=== PATIENT | female | born 1960 | race Caucasian/White ===

== ENCOUNTER 2017-12-27 08:58 | Day surgery (SDC) | payer BC, SELFPAY ==
--- NOTE | 2017-12-27 06:44 | W.COLOREPORT ---
Colonoscopy Report Date of procedure: 12/27/17 Pre-op diagnosis general: Colon Cancer screening, hx of polyps Post-op diagnosis procedure note: other (Polyps x 3 and diverticulosis) Procedure: Colonoscopy with polypectomy by cold forceps Surgeon: Bibi Kaiser Anesthesia proc note operative: MAC (Hoda Gamble CRNA / Alie Price CRNA) Estimated blood loss (mL): 2 Pathology: other (descending polyp, rectal polyp x 2) Complications: None Disposition: same day Indications: Ms. Clarke is a pleasant 57-year-old female who was seen in the office to discuss a screening colonoscopy. Risks, benefits, complications were reviewed with her and she wished to proceed. No guarantees were given or implied. Prep: Miralax/Dulcolax Procedure Start Time: 11:00 Procedure End Time: 11:35 Retraction Time: 19 minutes Findings: There were 3 polyps noted within the large bowel. One in the descending colon and 2 in the rectum. There was also moderate diverticulosis of the sigmoid colon. Procedure Description: After informed consent was obtained the patient was taken to the procedure room and placed in a left decubitous position. Monitors were applied and a time out was done. The patients name, date of , procedure, allergies to medications and metal in their body was reviewed. The patient was then sedated. Once sedated and comfortable a rectal exam was done. External exam was normal. Internal exam revealed a normal sphincter tone and no palpable masses. The scope was then introduced and retroflexed. No internal hemorrhoids were identified. The scope was then advanced to the cecum without difficulty. The TI and appendiceal orifice were identified. The prep was adequate. The scope was then slowly retracted over 19 minutes back into the rectum. 1 polyp was removed in the descending colon and 2 in the rectum. There was also moderate diverticulosis of the sigmoid colon. The scope was removed and the patient was woken up and taken back to Same day surgery in stable condition. The patient tolerated the procedure well and there were no immediate complications. Follow up: The patient should follow up in 3-5 years, depending on final pathology, unless they develop changes in bowel habits or other new gastrointestinal complaints.
--- NOTE | 2017-12-27 06:55 | PDOC.DSDIS_ITS ---
Discharge Plan Disposition Patient Disposition: HOME Condition: Good Discharge Details Reason For Visit: SCREENING / HX OF POLYP Attending Provider: Bibi Kaiser Primary Care Provider: Elio Sol Home Meds and New Rx's Prescriptions: Continue albuterol sulfate [Ventolin HFA] 90 mcg/actuation HFA aerosol inhaler 2 puff IH QID RF: 0 aspirin 325 MG tablet 1 tab PO DAILY RF: 0 fluticasone-salmeterol [Advair Diskus] 1 EACH blister with device 1 puff Inhalation BID RF: 0 trazodone 100 MG tablet 1 tab PO HS RF: 0 codeine-guaifenesin [Guaifenesin AC] 473 ML liquid 1 - 2 tsp PO BID PRNRF: 0 levalbuterol tartrate [Xopenex HFA] 15 GM HFA aerosol inhaler 2 puff Inhalation Q6H PRN Qty: 3 RF: 4 mometasone 45 GM cream 45 gm Topical bid prn Qty: 1 RF: 1 PROVENTIL HFA 18 GM HFA.AER.AD 1 - 2 puff Inhalation Q4H PRN Qty: 2 RF: 5 bupropion HCl 150 MG tablet extended release 12 hr 150 mg PO DAILY Qty: 30 RF: 11 naproxen 250 mg Tablet 500 mg PO BID PRNRF: 0 Discontinued polyethylene glycol 3350 17 gram powder in packet 255 g PO DAILY Qty: 15 RF: 0 bisacodyl [Dulcolax (bisacodyl)] 5 mg tablet,delayed release (DR/EC) 5 mg PO ONCE Qty: 4 RF: 0 Discharge Instructions Instructions: Colonoscopy (DC), Diverticulosis (DC), Colorectal Polyps (DC) Additional Instructions: Findings: 3 polyps Diverticulosis Follow up: 3-5 years depending on final pathology New Medications: None Please call if you develop: fevers >101.5 Nausea or Vomiting Abdominal pain that is not transient 1. Because there will be medication in your system for the next 24 hours, you may feel a little sleepy. Your coordination will be affected. Therefore: a. Do not drive or operate dangerous equipment for 24 hours. b. Do not drink alcohol beverages for 24 hours (not even beer). c. Plan to go home and rest for the day. 2. Generally there are no restrictions on your activity after a day or so has gone by, but you may feel a bit fatigued for a few days. 3 After you arrive home you may have a light meal and return to a normal diet as you can tolerate it without feeling sick to your stomach. 4. After surgery, you may feel pain or discomfort. This should be only transient , but if it persists please contact your doctor. 5. If there are any questions regarding the findings of your procedure, please feel free to contact your doctor. 6. If you are unable to contact your doctor with a problem, contact the hospital at [phone]. 7. Continue all your regular medications unless directed otherwise. I understand the above instructions and have no questions. Signature of Patient or Responsible Adult Escort Date/Time Name of Responsible Adult Escort Signature of Nurse Date/Time Activity:: Activity as Tolerated Diet:: high fiber diet Discharge Orders Discharge Orders: Discharge Order (Routine); Ordered 12/27/17 Ordered By: Bibi Kaiser DS: Diagnosis Discharge Diagnosis (1) Colorectal polyp detected on colonoscopy: Status: Acute (2) Diverticulosis: Status: Acute
[2017-12-27 09:28] VITALS: BP 138/84; PULSE 91; RESP 16; TEMP 36.6; O2SAT 94
[2017-12-27] MEDS: Lactated Ringers 1,000 ML 80 ML IV (09:40)
--- NOTE | 2017-12-27 11:02 | BOWEL_PTH ---
PATIENT: INGRID JOHNSON LOC: [facility] U#:[id number] AGE/SX: 57/F ROOM: RE12/27/[address]: Bibi Kaiser MD : [id number] BED: DIS: 12/27/2017 SPEC #: [id number] RECD: 12/27/17 12:43 STATUS: JEN REQ #: [id number] DAMASO: 12/27/17 11:[address]: Bibi Kaiser DEPT: Surgical Specimen RECD BY: Minnie Trent ENTERED: 12/27/17 12:44 SP TYPE: Bowel OTHR DR: Elio Sol MD Tissues: 1 - BIOPSY BOWEL 2 - BIOPSY BOWEL Procedures: GROSS AND MICRO LEVEL 4 Comments: [id number]
[2017-12-27 12:15] VITALS: BP 132/65; PULSE 70; RESP 18; TEMP 36.4; O2SAT 95
== END 2017-12-27 13:02 | disposition home or self-care (01) ==
LOC: SUR 08:59
PROVIDERS: PCP Family Medicine; Visit Provider Surgery
PROC: 0DJD8ZZ Inspection of Lower Intestinal Tract, Via Natural or Artificial Opening Endoscopic (ICD-10-PCS; CPT 45378; principal; 2017-12-27 10:30)
DX: Z12.11 Encounter for screening for malignant neoplasm of colon (principal); K62.1 Rectal polyp; K63.5 Polyp of colon; K57.30 Diverticulosis of large intestine without perforation or abscess without bleeding; Z86.010 Personal history of colon polyps; J44.9 Chronic obstructive pulmonary disease, unspecified; I45.9 Conduction disorder, unspecified; F17.210 Nicotine dependence, cigarettes, uncomplicated
CPT/HCPCS: 45380; 88305

== ENCOUNTER 2018-02-01 11:08 | Emergency (ER) | payer BC, SELFPAY ==
[2018-02-01] VITALS (53 sets, daily range): BP systolic 86–148; BP diastolic 62–106; PULSE 78–148; RESP 10–24; TEMP 36.9; O2SAT 92–100
--- NOTE | 2018-02-01 11:24 | DI.RAD_ITS ---
SYMPTOM/DIAGNOSIS: CHEST PAIN CHEST X-RAY. PORTABLE AP VIEW: Comparison 11/13/11 Heart size and pulmonary vasculature are within normal limits. The lungs show no evidence of congestive heart failure or pneumonia. There is a question of a 2 cm soft tissue nodule in the right perihilar region. CT scan of the chest is recommended for further evaluation. The bones and joints appear unremarkable. IMPRESSION: 1. No acute pulmonary process. 2. Possible soft tissue nodule in the right perihilar region. CT scan of the chest with contrast is recommended for further evaluation.
[2018-02-01] MEDS: methylPREDNISolone SUCC 125 MG VIAL (11:25)
[2018-02-01] MEDS: diphenhydrAMINE 50 MG/ML VIAL (11:26)
[2018-02-01] MEDS: FAMOTIDINE 20 MG/50 ML BAG 100 MG (11:26)
[2018-02-01] MEDS: Aspirin 81 MG CHEW 324 MG CH (11:27)
[2018-02-01 11:37] LABS: Absolute Basophil Count 0.02 k/cumm (0.0-0.2); Absolute Eosinophil Count 0.14 k/cumm (0.0-0.7); Absolute Lymphocyte Count 2.44 k/cumm (1.2-3.4); Absolute Monocyte Count 0.66 k/cumm (0.11-0.7); Absolute Neutrophil Count 4.42 k/cumm (1.2-6.7); Basophils % 0.3; Eosinophils % 1.8; HCT 44.4 % (36.0-46.0); HGB 15.1 g/dL (12.0-15.5); Lymphocytes % 31.8; Mean Corpuscular Hemoglobin 31.5 pg (27.0-33.0); Mean Corpuscular Volume 92.5 fL (80-95); Mean Platelet Volume 10.8 fL (8.0-11.0); Monocytes % 8.6; Neutrophils % 57.5; Platelet Count 237 x1000/uL (130-400); RBC Distribution Width 14.1 % (11.7-14.6); White Blood Cell Count 7.68 k/cumm (4.4-10.8)
[2018-02-01 11:52] LABS: PTT Activated 23.9 sec (21.0-31.4); Prothrombin Time 9.3 sec (9.3-10.8)
--- NOTE | 2018-02-01 11:55 | W.ED.GENAD ---
Discharge Plan Disposition Patient Disposition: [facility] Condition: Stable Discharge Details Chief Complaint: Chest Pain Clinical Impression: Acute non-ST elevation myocardial infarction (NSTEMI), Bundle branch block, left, Chest pain, Acute hypokalemia, Nodule of soft tissue Primary Care Provider: Elio Sol ED Provider: Mayank Santillan Home Meds and New Rx's Prescriptions: No Action aspirin 325 MG tablet 1 tab PO DAILY RF: 0 PROVENTIL HFA 18 GM HFA.AER.AD 1 - 2 puff Inhalation Q4H PRN Qty: 2 RF: 5 Discharge Data Discharge Date/Time-TO BE ENTERED AT DEPARTURE: 02/01/18 13:48 Medical Decision Making 11:55 AM This is a 57-year-old female who presents for evaluation of chest pain. The patient states that 1 hour prior to arrival she had a stabbing chest pain that radiated to her left shoulder and down her left arm. She describes it as a 10 out of 10. She denies any associated shortness of breath. She has never had symptoms quite like this before. Patient has cardiac red flags of a CVA in the past, hypertension, tobacco use. She does take a daily aspirin. She also has a history of WPW. There is concern for potential STEMI. EKG was ordered and shows 1 mm of elevation in V1, and less than 1 May millimeter elevation in V2, no significant reciprocal depression. Patient was given 2 nitroglycerin and had near complete resolution of her pain which eventually returned requiring nitroglycerin drip. Aspirin was given. Cardiology at [facility] was immediately called, after review with Dr. Mcdonough over the EKGs they do recommend admission but have no rooms at this time. They do not feel that the EKGs represent evidence of STEMI, and recommend holding off on TNKase at this time. They do recommend starting heparin, aspirin, and plavix. They will facilitate a transfer as soon as a bed becomes available. 1:20 p.m. Patient's laboratory workup has returned, and demonstrates a negative troponin, potassium is low at 3.1, the remainder of her laboratory blood work is relatively benign. We will correct her hypokalemia peer the patient had a return of her pain requiring increasing the nitroglycerin drip. The nitro drip was increased to 20, however the patient had an adverse reaction and became notably hypotensive with a systolic blood pressure in the 80s. Nitro drip was then titrated back down to 15, and subsequently increased back up to 17.5 where she remains with a pain of 1, and a blood pressure of 100-110 systolic. Repeat EKG was ordered, and now there is notable difference. It does appear that there is a sinus rhythm with occasional PVCs and signs of a left bundle branch block. The previous EKGs now clearly demonstrate an acute and new left bundle branch block in the setting of chest pain. The EKGs are negative for SCARBOSSA criterion. With the patient's increased need for nitroglycerin with her mildly resistant chest pain, and in conjunction with evaluation of an EKG showing that there is a new left bundle branch block (unfortunately there were no previous EKGs for initial comparison) we did contact [facility] and I discussed the case with Dr. Mcdonough again. After review of the case Dr. Mcdonough does feel that with these clinical findings the patient should be transferred to [facility] for cardiac catheterization. She does not recommend giving TNK at this time. Patient will be transferred to [facility] by [facility]. I have extensively reviewed the treatment plan with the patient. I have addressed all patient concerns at this time. I have also discussed the plan with the admitting physician and they agree with the current assessment and plan and have agreed to assume responsibility for the patient. All parties demonstrate verbal understanding and agreement with our assessment and plan at this time. Upon my evaluation, this patient had a high probability of imminent or life-threatening deterioration, which required my direct attention, intervention, and personal management. I have personally provided 45 minutes of critical care time exclusive of time spent on separately billable procedures. Time includes review of laboratory data, radiology results, discussion with consultants, and monitoring for potential decompensation. Interventions were performed as documented above. EKG 11: 16 Rate 95, TN 116, QTc 458, QRS 126, sinus rhythm, WPW type B, questionable [address] elevation in V1, and less than 1 mm elevation in V2, minimal depression in aVF and lead I and II. QRS morphology is atypical, may be related to bundle branch block. SCARBOSSA criteria negative EKG 11: 39 Rate 96, sinus rhythm, TN 124, QTc 455, QRS 136, BP to be, continued questionable 1 mm elevation in V1 and V2, questionable less than 1 mm depression in lateral leads as well as lead I and II. QRS morphology is atypical, may be related to bundle branch block. SCARBOSSA criteria negative EKG 12: 12 Rate 86, sinus rhythm, TN 178, QTc 454, QRS 90, sinus rhythm with notable frequent ectopic ventricular beats, concerning for left bundle branch block which is acute. The normal QRS complexes demonstrate inverted T waves in V1, V2, and peaking of the T waves in V4 V5. No Q waves. Notable changes from prior EKG. Of note the patient has brought up that she has an IV contrast dye allergy which only causes a mild rash, and so on her arrival we did pretreat with Pepcid, 25 mg of Benadryl, and 120 of Solu-Medrol MPRESSION: 1. No acute pulmonary process. 2. Possible soft tissue nodule in the right perihilar region. CT scan of the chest with contrast is recommended for further evaluation. HPI General Date/Time Provider Initiated Documentation: 02/01/18 11:08. HPI Narrative: This is a 57-year-old female with a past medical history of Parkinson's white, COPD, cerebrovascular accident in the past, continued tobacco abuse, who presents today for evaluation of chest pain. 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 It was sharp in nature, was associated with mild shortness of breath. She denies any tearing sensation. She denies any radiation to her head or her right arm. Patient's symptoms are not improved by anything. She immediately came to the ER for further evaluation. Patient states that the only time she had symptoms like this in the past was when she had SVT. Patient denies any other aggravating or relieving factors. She denies any other complaints at this time. She denies any history of coronary artery disease but does admit to a family history of cardiac disease. She did take her daily aspirin earlier today. Patient denies any recent surgeries, or IV or illicit drug use. Related Data Home Medications Medication Instructions Recorded Confirmed aspirin 1 tab PO DAILY tab 06/15/12 02/01/18 Allergies Allergy/AdvReac Type Severity Reaction Status Date / Time Sulfa (Sulfonamide Allergy Unknown HIVES Unverified 02/01/18 13:28 Antibiotics) citalopram AdvReac Intermediate Unverified 02/01/18 13:28 iv contrast Allergy Uncoded 02/01/18 13:29 General Stated Complaint: Chest Pain NATHANIEL: 2 Review of Systems Review of Systems All systems reviewed & are unremarkable except as noted in HPI and below PFSH WPW (Vompx-Wpxdqwgxk-Edezv syndrome) (Acute 1989) Vaginal high risk HPV DNA test positive (Acute 03/31/08) Tubular adenoma (Acute) Smoker (Acute 07/28/17) Ovarian cyst (Acute) Depression (Acute 07/28/17) Chronic obstructive pulmonary disease, unspecified (Acute 07/28/17) CVA (cerebral vascular accident) (Acute 1989) Allergic dermatitis (Acute 07/28/17) Family History Mother Diabetes Cerebrovascular accident Father Diabetes Cerebrovascular accident Grandmother Cerebrovascular accident Sister Diabetes Neoplasm Sister No problems noted. Sister Neoplasm Sister No problems noted. Son Depression Daughter No problems noted. Daughter Substance abuse Depression Family History Toxic shock syndrome (TSS) Blood disorder Colonoscopy planned (Acute ~12/27/17) S/P colonoscopy (Acute ~2003) section Ligation of fallopian tube Social History housing: apartment lives independently: Yes number of children: 3 Smoking/Tobacco Use Status: Current every day tobacco type: cigarettes alcohol intake: current alcohol intake frequency: holidays/special occasions only substance use type: marijuana Exam Narrative Exam Narrative: 1.Const: Well-nourished, Well-developed, appearing stated age 2.Eyes: PERRL, no conjunctival injection, and symmetrical lids. 3.ENT: Atraumatic external nose and ears. Moist MM. Neck: Symmetric, trachea midline, No thyromegaly. 4.CVS: +S1/S2, No murmurs or gallops. Peripheral pulses 2+ and equal in all extremities. Brisk capillary refill in all extremities. 5.RESP: Unlabored respiratory effort. Clear to auscultation bilaterally. No wheezes rales or rhonchi 6.GI: Soft, Nontender/Nondistended, No hepatosplenomegaly. No guarding or rebound. 7.MSK: Normocephalic/Atraumatic, Extremities w/o deformity or ttp No cyanosis or clubbing, Normal movement of all extremities 8.Skin: Warm, Dry. No rashes or lesions. 9.Neuro: beef skinner II-XII grossly intact. Sensation grossly intact, no focal neurologic deficits. 10.Psych: (AAO) x3. Appropriate mood and affect Course Vital Signs Respiratory Rate 18 02/01/18 11:10 Pulse Oximetry 100 02/01/18 11:10 Temperature 36.9 C 02/01/18 11:15 Temperature Source Skin 02/01/18 11:15 Pulse 90 02/01/18 11:46 Pulse 95 H 02/01/18 11:46 Respiratory Rate 17 02/01/18 11:46 Respiratory Effort 02/01/18 11:26 Respiratory Depth Normal 02/01/18 11:10 Respiratory Pattern Normal 02/01/18 11:10 Blood Pressure 126/70 02/01/18 11:46 Blood Pressure Mean 83 02/01/18 11:46 Pulse Oximetry 97 02/01/18 11:46 Oxygen Delivery Method Room Air 02/01/18 11:15 Oxygen Flow Rate 0 02/01/18 11:15 Pain Level 0 02/01/18 11:30 Lab/Test Results Lab/Test Results: Laboratory Tests Range/Units 02/01/18 02/01/18 11:15 11:15 WBC (4.4-10.8) k/cumm 7.68 RBC (4.00-5.20) m/cumm 4.80 Hgb (12.0-15.5) g/dL 15.1 Hct (36.0-46.0) % 44.4 MCV (80-95) fL 92.5 MCH (27.0-33.0) pg 31.5 MCHC (32.0-36.0) g/dL 34.0 RDW (11.7-14.6) % 14.1 Plt Count (130-400) x1000/uL 237 MPV (8.0-11.0) fL 10.8 Immature Gran % 0.0 Neutrophils % 57.5 Lymphocytes % 31.8 Monocytes % 8.6 Eosinophils % 1.8 Basophils % 0.3 Absolute Neutrophils (1.2-6.7) k/cumm 4.42 Absolute Lymphocytes (1.2-3.4) k/cumm 2.44 Absolute Monocytes (0.11-0.7) k/cumm 0.66 Absolute Eosinophils (0.0-0.7) k/cumm 0.14 Absolute Basophils (0.0-0.2) k/cumm 0.02 PT (9.3-10.8) sec 9.3 INR (1.0-3.5) 1.0 APTT (21.0-31.4) sec 23.9
[2018-02-01] MEDS: Normal Saline 1,000 ML 1000 ML IV (11:57)
[2018-02-01 11:58] LABS: ALT 32 U/L (12-78); AST 21 U/L (15-37); Albumin 4.6 g/dL (3.4-5.0); Alkaline Phosphatase 125 U/L (46-116); BUN 18 mg/dL (7-18); Bilirubin, Total 0.5 mg/dL (0.2-1.0); CREATININE 1.03 mg/dL (0.55-1.02); Calcium 10.1 mg/dL (8.5-10.1); Chloride 99 mmol/L (98-107); Estimated GFR 55.63 (mL/min/1.73m2); Glucose 95 mg/dL (70-100); Potassium 3.1 mmol/L (3.5-5.1); Sodium 136 mmol/L (136-145); Total Protein 8.5 g/dL (6.4-8.2)
--- NOTE | 2018-02-01 11:58 | ED.GENADUL_ITS ---
Discharge Plan Disposition Patient Disposition: [facility] Condition: Stable Discharge Details Chief Complaint: Chest Pain Clinical Impression: Acute non-ST elevation myocardial infarction (NSTEMI), Bundle branch block, left, Chest pain, Acute hypokalemia, Nodule of soft tissue Primary Care Provider: Elio Sol ED Provider: Mayank Santillan Home Meds and New Rx's Prescriptions: No Action aspirin 325 MG tablet 1 tab PO DAILY RF: 0 PROVENTIL HFA 18 GM HFA.AER.AD 1 - 2 puff Inhalation Q4H PRN Qty: 2 RF: 5 Discharge Data Discharge Date/Time-TO BE ENTERED AT DEPARTURE: 02/01/18 13:48 Medical Decision Making 11:55 AM This is a 57-year-old female who presents for evaluation of chest pain. The patient states that 1 hour prior to arrival she had a stabbing chest pain that radiated to her left shoulder and down her left arm. She describes it as a 10 out of 10. She denies any associated shortness of breath. She has never had symptoms quite like this before. Patient has cardiac red flags of a CVA in the past, hypertension, tobacco use. She does take a daily aspirin. She also has a history of WPW. There is concern for potential STEMI. EKG was ordered and shows 1 mm of elevation in V1, and less than 1 May millimeter elevation in V2, no significant reciprocal depression. Patient was given 2 nitroglycerin and had near complete resolution of her pain which eventually returned requiring nitroglycerin drip. Aspirin was given. Cardiology at [facility] was immediately called, after review with Dr. Mcdonough over the EKGs they do recommend admission but have no rooms at this time. They do not feel that the EKGs represent evidence of STEMI, and recommend holding off on TNKase at this time. They do recommend starting heparin, aspirin, and plavix. They will facilitate a transfer as soon as a bed becomes available. 1:20 p.m. Patient's laboratory workup has returned, and demonstrates a negative troponin, potassium is low at 3.1, the remainder of her laboratory blood work is relatively benign. We will correct her hypokalemia peer the patient had a return of her pain requiring increasing the nitroglycerin drip. The nitro drip was increased to 20, however the patient had an adverse reaction and became notably hypotensive with a systolic blood pressure in the 80s. Nitro drip was then titrated back down to 15, and subsequently increased back up to 17.5 where she remains with a pain of 1, and a blood pressure of 100-110 systolic. Repeat EKG was ordered, and now there is notable difference. It does appear that there is a sinus rhythm with occasional PVCs and signs of a left bundle branch block. The previous EKGs now clearly demonstrate an acute and new left bundle branch block in the setting of chest pain. The EKGs are negative for SCARBOSSA criterion. With the patient's increased need for nitroglycerin with her mildly resistant chest pain, and in conjunction with evaluation of an EKG showing that there is a new left bundle branch block (unfortunately there were no previous EKGs for initial comparison) we did contact [facility] and I discussed the case with Dr. Mcdonough again. After review of the case Dr. Mcdonough does feel that with these clinical findings the patient should be transferred to [facility] for cardiac catheterization. She does not recommend giving TNK at this time. Patient will be transferred to [facility] by [facility]. I have extensively reviewed the treatment plan with the patient. I have addressed all patient concerns at this time. I have also discussed the plan with the admitting physician and they agree with the current assessment and plan and have agreed to assume responsibility for the patient. All parties demonstrate verbal understanding and agreement with our assessment and plan at this time. Upon my evaluation, this patient had a high probability of imminent or life- threatening deterioration, which required my direct attention, intervention, and personal management. I have personally provided 45 minutes of critical care time exclusive of time spent on separately billable procedures. Time includes review of laboratory data, radiology results, discussion with consultants, and monitoring for potential decompensation. Interventions were performed as documented above. EKG 11: 16 Rate 95, DE 116, QTc 458, QRS 126, sinus rhythm, WPW type B, questionable [address] elevation in V1, and less than 1 mm elevation in V2, minimal depression in aVF and lead I and II. QRS morphology is atypical, may be related to bundle branch block. SCARBOSSA criteria negative EKG 11: 39 Rate 96, sinus rhythm, DE 124, QTc 455, QRS 136, BP to be, continued questionable 1 mm elevation in V1 and V2, questionable less than 1 mm depression in lateral leads as well as lead I and II. QRS morphology is atypical , may be related to bundle branch block. SCARBOSSA criteria negative EKG 12: 12 Rate 86, sinus rhythm, DE 178, QTc 454, QRS 90, sinus rhythm with notable frequent ectopic ventricular beats, concerning for left bundle branch block which is acute. The normal QRS complexes demonstrate inverted T waves in V1, V2 , and peaking of the T waves in V4 V5. No Q waves. Notable changes from prior EKG. Of note the patient has brought up that she has an IV contrast dye allergy which only causes a mild rash, and so on her arrival we did pretreat with Pepcid , 25 mg of Benadryl, and 120 of Solu-Medrol MPRESSION: 1. No acute pulmonary process. 2. Possible soft tissue nodule in the right perihilar region. CT scan of the chest with contrast is recommended for further evaluation. HPI General Date/Time Provider Initiated Documentation: 02/01/18 11:08 . HPI Narrative: This is a 57-year-old female with a past medical history of Parkinson's white, COPD, cerebrovascular accident in the past, continued tobacco abuse, who presents today for evaluation of chest pain. 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 It was sharp in nature, was associated with mild shortness of breath. She denies any tearing sensation. She denies any radiation to her head or her right arm. Patient's symptoms are not improved by anything. She immediately came to the ER for further evaluation. Patient states that the only time she had symptoms like this in the past was when she had SVT. Patient denies any other aggravating or relieving factors. She denies any other complaints at this time. She denies any history of coronary artery disease but does admit to a family history of cardiac disease. She did take her daily aspirin earlier today. Patient denies any recent surgeries, or IV or illicit drug use. Related Data Home Medications Medication Instructions Recorded Confirmed aspirin 1 tab PO DAILY tab 06/15/12 02/01/18 Allergies Allergy/AdvReac Type Severity Reaction Status Date / Time Sulfa (Sulfonamide Allergy Unknown HIVES Unverified 02/01/18 13:28 Antibiotics) citalopram AdvReac Intermediate Unverified 02/01/18 13:28 iv contrast Allergy Uncoded 02/01/18 13:29 General Stated Complaint: Chest Pain NATHANIEL: 2 Review of Systems Review of Systems All systems reviewed & are unremarkable except as noted in HPI and below PFSH WPW (Miwmc-Ojimotsib-Opwwn syndrome) (Acute 1989) Vaginal high risk HPV DNA test positive (Acute 03/31/08) Tubular adenoma (Acute) Smoker (Acute 07/28/17) Ovarian cyst (Acute) Depression (Acute 07/28/17) Chronic obstructive pulmonary disease, unspecified (Acute 07/28/17) CVA (cerebral vascular accident) (Acute 1989) Allergic dermatitis (Acute 07/28/17) Family History Mother Diabetes Cerebrovascular accident Father Diabetes Cerebrovascular accident Grandmother Cerebrovascular accident Sister Diabetes Neoplasm Sister No problems noted. Sister Neoplasm Sister No problems noted. Son Depression Daughter No problems noted. Daughter Substance abuse Depression Family History Toxic shock syndrome (TSS) Blood disorder Colonoscopy planned (Acute ~12/27/17) S/P colonoscopy (Acute ~2003) section Ligation of fallopian tube Social History housing: apartment lives independently: Yes number of children: 3 Smoking/Tobacco Use Status: Current every day tobacco type: cigarettes alcohol intake: current alcohol intake frequency: holidays/special occasions only substance use type: marijuana Exam Narrative Exam Narrative: 1.Const: Well-nourished, Well-developed, appearing stated age 2.Eyes: PERRL, no conjunctival injection, and symmetrical lids. 3.ENT: Atraumatic external nose and ears. Moist MM. Neck: Symmetric, trachea midline, No thyromegaly. 4.CVS: +S1/S2, No murmurs or gallops. Peripheral pulses 2+ and equal in all extremities. Brisk capillary refill in all extremities. 5.RESP: Unlabored respiratory effort. Clear to auscultation bilaterally. No wheezes rales or rhonchi 6.GI: Soft, Nontender/Nondistended, No hepatosplenomegaly. No guarding or rebound. 7.MSK: Normocephalic/Atraumatic, Extremities w/o deformity or ttp No cyanosis or clubbing, Normal movement of all extremities 8.Skin: Warm, Dry. No rashes or lesions. 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 Sensation grossly intact, no focal neurologic deficits. 10.Psych: (AAO) x3. Appropriate mood and affect Course Vital Signs Respiratory Rate 18 02/01/18 11:10 Pulse Oximetry 100 02/01/18 11:10 Temperature 36.9 C 02/01/18 11:15 Temperature Source Skin 02/01/18 11:15 Pulse 90 02/01/18 11:46 Pulse 95 H 02/01/18 11:46 Respiratory Rate 17 02/01/18 11:46 Respiratory Effort 02/01/18 11:26 Respiratory Depth Normal 02/01/18 11:10 Respiratory Pattern Normal 02/01/18 11:10 Blood Pressure 126/70 02/01/18 11:46 Blood Pressure Mean 83 02/01/18 11:46 Pulse Oximetry 97 02/01/18 11:46 Oxygen Delivery Method Room Air 02/01/18 11:15 Oxygen Flow Rate 0 02/01/18 11:15 Pain Level 0 02/01/18 11:30 Lab/Test Results Lab/Test Results: Laboratory Tests Range/Units 02/01/18 02/01/18 11:15 11:15 WBC (4.4-10.8) k/cumm 7.68 RBC (4.00-5.20) m/cumm 4.80 Hgb (12.0-15.5) g/dL 15.1 Hct (36.0-46.0) % 44.4 MCV (80-95) fL 92.5 MCH (27.0-33.0) pg 31.5 MCHC (32.0-36.0) g/dL 34.0 RDW (11.7-14.6) % 14.1 Plt Count (130-400) x1000/uL 237 MPV (8.0-11.0) fL 10.8 Immature Gran % 0.0 Neutrophils % 57.5 Lymphocytes % 31.8 Monocytes % 8.6 Eosinophils % 1.8 Basophils % 0.3 Absolute Neutrophils (1.2-6.7) k/cumm 4.42 Absolute Lymphocytes (1.2-3.4) k/cumm 2.44 Absolute Monocytes (0.11-0.7) k/cumm 0.66 Absolute Eosinophils (0.0-0.7) k/cumm 0.14 Absolute Basophils (0.0-0.2) k/cumm 0.02 PT (9.3-10.8) sec 9.3 INR (1.0-3.5) 1.0 APTT (21.0-31.4) sec 23.9
[2018-02-01 12:02] LABS: Troponin I < 0.02 ng/mL (0.00-0.06)
--- NOTE | 2018-02-01 12:17 | NUR.NOTE ---
Nursing Note: Nitro drip increased to 15 mcg/ min for increased chest pain back up to a 5
[2018-02-01] MEDS: Clopidogrel 300 MG TAB 600 MG PO (12:20)
[2018-02-01] MEDS: Potassium Chloride 20 MEQ TABCR 40 MEQ PO (12:38)
[2018-02-01 13:16] LABS: Magnesium 1.9 mg/dL (1.8-2.4)
[2018-02-01] MEDS: POTASSIUM CHLORIDE 20 MEQ/100 ML BAG 50 MEQ IVPB (13:22)
== END 2018-02-01 13:48 | disposition short-term general hospital (02) ==
PROVIDERS: Emergency Provider Student in an Organized Health Care Education/Training Program; PCP Family Medicine
DX: I21.4 Non-ST elevation (NSTEMI) myocardial infarction (principal); I44.7 Left bundle-branch block, unspecified; E87.6 Hypokalemia; R91.1 Solitary pulmonary nodule; I45.6 Pre-excitation syndrome; I95.2 Hypotension due to drugs; T46.3X5A Adverse effect of coronary vasodilators, initial encounter; J44.9 Chronic obstructive pulmonary disease, unspecified; F17.210 Nicotine dependence, cigarettes, uncomplicated
CPT/HCPCS: 80053; 93005; 96361; 96365; 96366; 96368; 96375; 96376; 99291; 71045; 83735; 84484; 85025; 85610; 85730; 93010; J1200; J2930; J3480

== ENCOUNTER 2018-04-04 02:35 | Outpatient (CLI) | payer BC, SELFPAY ==
--- NOTE | 2018-04-12 09:20 | HOLTER_ITS ---
HOLTER MONITOR DATE OF DICTATION April 12, 2018 STUDY INDICATION WPW. REQUESTING PROVIDER Megan Watts M.D. FINDINGS The patient was monitored for 2 days. Baseline rhythm sinus rhythm with pre-excitation. Average heart rate 87 beats per minute, range 66 to 135 beats per minute. Rare ectopy, 4 PVCs and 86 PACs. 2 atrial runs, longest 5 beats, fastest 157 beats per minute. No pauses greater than 3 seconds. No higher degree heart block. No patient events. FINAL INTEPRETATION WPW without loss of pre-excitation at maximum heart rate during sinus rhythm. Steve Evangelista M.D. JANN/elva T-04/12/2018
== END 2018-04-04 02:55 ==
PROVIDERS: PCP Family Medicine; Visit Provider Internal Medicine Cardiovascular Disease
DX: I45.6 Pre-excitation syndrome (principal); I49.1 Atrial premature depolarization; I49.3 Ventricular premature depolarization
CPT/HCPCS: 93225

== ENCOUNTER 2018-04-11 16:09 | Outpatient (CLI) | payer BC, SELFPAY | END 2018-04-11 16:29 | PROVIDERS: PCP Family Medicine; Visit Provider Internal Medicine Cardiovascular Disease | DX: I45.6 Pre-excitation syndrome (principal); I49.1 Atrial premature depolarization; I49.3 Ventricular premature depolarization | CPT/HCPCS: 93226 ==

== ENCOUNTER 2018-04-12 01:02 | Outpatient (CLI) | payer BC, SELFPAY ==
--- NOTE | 2018-04-12 10:25 | MERGE_ITS ---
*[facility]* *[facility]* [address] [place] [address] Date of study: 04/12/2018 Transthoracic Echocardiography M-mode, complete 2D, complete spectral Doppler, and color Doppler *STUDY CONCLUSIONS* Summary: 1. Left ventricle: The cavity size was normal. Wall thickness was normal. Systolic function was normal. The estimated ejection fraction was 55-60%. Wall motion was normal; there were no regional wall motion abnormalities. 2. Aortic valve: Probably trileaflet; normal thickness leaflets. There was moderate regurgitation. 3. Right ventricle: The cavity size was normal. Wall thickness was normal. Systolic function was normal. *PATIENT PRESENTATION* Height: 154.9cm ((61in) ) S/D Pressure: 117 / 68 Weight: 59kg ((129.7lb) ) BSA: 1.6m^2 Test start time: 10:40 AM. Test stop time: 11:40 AM. PERFORMING Unknown ORDERING Megan Watts REFERRING Megan Watts PERFORMING [facility] CIRCULATION SALES REPRESENTATIVE RT Wade (R)(CT), KATRINA CONSULTING Elio Sol *PROCEDURE DATA* Procedure information: The patient was identified by two identifiers. This study was interpreted by [facility]. Pertinent images and digital data are archived for permanent storage and are available for subsequent review. Comparison was made to the study of 06/04/2010. Study status: Routine. Transthoracic echocardiography. M-mode, complete 2D, complete spectral Doppler, and color Doppler. A Transthoracic Echocardiogram was performed. Scanning was performed from the parasternal, apical, subcostal, and suprasternal notch acoustic windows. Images were obtained using an [id number] cardiac ultrasound machine. Image quality was adequate. Study completion: The patient tolerated the procedure well. There were no complications. History: PMH: Chest pain. WPW, CAD, COPD, I 45.6, R07.9 *CARDIAC ANATOMY* Left ventricle: The cavity size was normal. Wall thickness was normal. Systolic function was normal. The estimated ejection fraction was 55-60%. Wall motion was normal; there were no regional wall motion abnormalities. Diastolic parameters were normal. Aortic valve: Probably trileaflet; normal thickness leaflets. Mobility was not restricted. Doppler: Transvalvular velocity was within the normal range. There was no stenosis. There was moderate regurgitation. VTI ratio of LVOT to aortic valve: 0.61. Valve area (VTI): 1.9cm^2. Indexed valve area (VTI): 1.2cm^2/m^2. Peak velocity ratio of LVOT to aortic valve: 0.66. Valve area (Vmax): 2cm^2. Indexed valve area (Vmax): 1.3cm^2/m^2. Mean velocity ratio of LVOT to aortic valve: 0.66. Valve area (Vmean): 2cm^2. Indexed valve area (Vmean): 1.3cm^2/m^2. Mean gradient (S): 6.4mm Hg. Peak gradient (S): 11.1mm Hg. Aorta: Aortic root: The aortic root was normal in size. Ascending aorta: The ascending aorta was normal in size. Mitral valve: Mildly thickened leaflets. Mobility was not restricted. Doppler: Transvalvular velocity was within the normal range. There was no evidence for stenosis. There was trivial regurgitation. Valve area by pressure half-time: 4.4cm^2. Indexed valve area by pressure half-time: 2.8cm^2/m^2. Peak gradient (D): 2.2mm Hg. Left atrium: The atrium was normal in size. Right ventricle: The cavity size was normal. Wall thickness was normal. Systolic function was normal. Pulmonic valve: Structurally normal valve. Doppler: Transvalvular velocity was within the normal range. There was no evidence for stenosis. There was no significant regurgitation. Tricuspid valve: Structurally normal valve. Doppler: Transvalvular velocity was within the normal range. There was no evidence for stenosis. There was trivial regurgitation. Pulmonary artery: Systolic pressure could not be accurately estimated. Right atrium: The atrium was normal in size. Pericardium: There was no pericardial effusion. Systemic veins: Inferior vena cava: Well visualized. The vessel was patent and normal in size. The respirophasic diameter changes were in the normal range (greater than or equal to 50%). Measurements Left ventricle Value Reference LV ID, ED, PLAX 4.9 cm 3.5 - 6.0 LV ID, ES, PLAX 3.3 cm 2.1 - 4.0 LV PW thickness, ED, PLAX 0.8 cm LV end-diastolic volume, 1-p A2C 85 ml LV ejection fraction, 1-p A2C 56 % LV end-diastolic volume, 1-p A4C 84 ml LV ejection fraction, 1-p A4C 53 % LV e', lateral 0.149 m/sec LV E/e', lateral 5 LV e', medial 0.089 m/sec LV E/e', medial 8 LV e', average 0.119 m/sec LV E/e', average 6 Ventricular septum Value Reference IVS thickness, ED, PLAX 0.8 cm LVOT Value Reference LVOT ID, A-P 2.0 cm LVOT area 3.1 cm^2 LVOT peak velocity, S 1.1 m/sec LVOT mean velocity, S 0.8 m/sec LVOT VTI, S 23.3 cm LVOT peak gradient, S 4.8 mm Hg LVOT mean gradient, S 2.8 mm Hg Stroke volume (SV), LVOT DP 72 ml Stroke index (SV/bsa), LVOT DP 45 ml/m^2 Aortic valve Value Reference Aortic valve peak velocity, S 1.7 m/sec Aortic valve mean velocity, S 1.22 m/sec Aortic valve VTI, S 38.0 cm Aortic mean gradient, S 6.4 mm Hg Aortic peak gradient, S 11.1 mm Hg VTI ratio, LVOT/AV 0.61 Aortic valve area, VTI 1.9 cm^2 Velocity ratio, peak, LVOT/AV 0.66 Aortic valve area, peak velocity 2 cm^2 Velocity ratio, mean, LVOT/AV 0.66 Aortic valve area, mean velocity 2 cm^2 Aortic valve area/bsa, mean velocity 1.3 cm^2/m^2 Aortic regurg deceleration 468 cm/s^2 Aortic regurg pressure half-time 277 ms Aorta Value Reference Aortic root ID, ED 2.9 cm Left atrium Value Reference LA ID, A-P, ES 4.1 cm LA ID/bsa, A-P (H) 2.5 cm/m^2 <=2.2 LA area, ES, A4C 16.7 cm^2 8.8 - 23.4 LA area, ES, A2C 15 cm^2 LA volume/bsa, ES, 1-p A4C 28 ml/m^2 LA volume, ES, 2-p 39 ml LA volume/bsa, ES, 2-p 24 ml/m^2 LA/aortic root ratio 1.39 Mitral valve Value Reference Mitral E-wave peak velocity 0.74 m/sec Mitral A-wave peak velocity 0.64 m/sec Mitral deceleration time 171 ms 150 - 230 Mitral pressure half-time 50 ms Mitral peak gradient, D 2.2 mm Hg Mitral E/A ratio, peak 1.16 Mitral valve area, PHT, DP 4.4 cm^2 Pulmonary veins Value Reference Pulmonary vein peak velocity, S 0.64 m/sec Pulmonary vein peak velocity, D 0.64 m/sec Pulmonary vein velocity ratio, peak, 0.99 S/D Tricuspid valve Value Reference Tricuspid regurg peak velocity 2.7 m/sec Tricuspid peak RV-RA gradient 28.1 mm Hg Right atrium Value Reference RA area, ES, A4C 10 cm^2 8.3 - 19.5 Legend: (L) and (H) pancho values outside specified reference range. I have personally reviewed the images and have reviewed and edited the reported findings. Electronically signed by Steve Evangelista 04/12/2018 16:07
== END 2018-04-12 01:22 ==
PROVIDERS: PCP Family Medicine; Visit Provider Internal Medicine Cardiovascular Disease
DX: R07.9 Chest pain, unspecified (principal); I45.6 Pre-excitation syndrome; I25.10 Atherosclerotic heart disease of native coronary artery without angina pectoris; J44.9 Chronic obstructive pulmonary disease, unspecified; I35.1 Nonrheumatic aortic (valve) insufficiency
CPT/HCPCS: 93306

== ENCOUNTER 2018-04-14 07:44 | Emergency (ER) | payer BC, SELFPAY ==
[2018-04-14 07:48] VITALS: BP 126/80; PULSE 96; RESP 18; TEMP 36.5; O2SAT 93
--- NOTE | 2018-04-14 08:06 | W.ED.GENAD ---
Discharge Plan Disposition Patient Disposition: HOME Condition: Stable Discharge Details Chief Complaint: RespSymp Clinical Impression: Sinusitis Primary Care Provider: Elio Sol ED Provider: Everett Velazquez Home Meds and New Rx's Prescriptions: New amoxicillin-pot clavulanate [Augmentin] 875-125 mg tablet 1 tab PO BID Qty: 14 RF: 0 Continued amlodipine 2.5 mg tablet 2.5 mg PO DAILY RF: 0 atorvastatin 20 mg tablet 20 mg PO QPM RF: 0 aspirin 325 MG tablet 1 tab PO DAILY RF: 0 PROVENTIL HFA 18 GM HFA.AER.AD 1 - 2 puff Inhalation Q4H PRN Qty: 2 RF: 5 Discharge Instructions Instructions: Sinusitis (ED) Additional Instructions: Follow up with your primary care provider if not better in a week If you feel you are worsening, becoming more ill and if you have difficulty breathing return to the emergency department Stand Alone Forms: Work Release Medical Decision Making 57 yo female with hx of wpw, copd and continued smoker, who comes in with cough and sinus pressure and body aches for 2 weeks. Denies alcohol or drug use. She has no recent travel or rashes. She is speaking in full sentences and has clear lungs on exam. Does have sinus tendernress on percussion. suspect viral illness but will treat for possible sinusitis with abx and advised f/u with pcp and return if worsening. Given lack of fever, well appearance and clear lungs do not feel imaging or lab work indicated. No murmur and no ivdu and no stigmata of endocarditis Differential Diagnosis sinusitis, uri, influenza, copd, pna HPI General Mode of arrival: ambulatory. Date/Time Provider Initiated Documentation: 04/14/18 07:56. Limitations to Documentation: no limitations. Information obtained by: patient. History of Present Illness 57 year old F presents to the emergency department with the chief complaint of cough and sinus pressure, described as moderate, with intensity rated at 5. Quality is described as aching, and is localized to the face. Patient started experiencing this week(s) (2) and it has been constant. No relieving factors improve symptom(s), No exacerbating factors reported . Patient notes cough. Patient did receive the following treatments prior to arrival, none Related Data Home Medications Medication Instructions Recorded Confirmed aspirin 1 tab PO DAILY tab 06/15/12 04/14/18 amlodipine 2.5 mg tablet 2.5 mg PO DAILY 02/07/18 04/14/18 atorvastatin 20 mg tablet 20 mg PO QPM 02/07/18 04/14/18 amoxicillin-pot clavulanate 1 tab PO BID #14 tab 04/14/18 [Augmentin] Previous Rx's Medication Instructions Recorded amoxicillin-pot clavulanate 1 tab PO BID #14 tab 04/14/18 [Augmentin] Allergies Allergy/AdvReac Type Severity Reaction Status Date / Time Sulfa (Sulfonamide Allergy Unknown HIVES Verified 04/14/18 07:56 Antibiotics) citalopram AdvReac Intermediate Verified 04/14/18 07:56 iv contrast Allergy Uncoded 04/14/18 07:56 General Stated Complaint: RespSymp NATHANIEL: 3 Review of Systems Review of Systems All systems reviewed & are unremarkable except as noted in HPI and below Constitutional Denies fever(s) and Denies weakness Cardiovascular Denies chest pain and Denies dyspnea Respiratory Denies dyspnea Gastrointestinal Denies abdominal pain, Denies nausea and Denies vomiting Genitourinary Denies dysuria Musculoskeletal Denies joint swelling Integumentary/Breasts Denies rash Neurologic Denies weakness [facility] Medical History WPW (Avall-Jcformiul-Youok syndrome) (Acute 1989) Vaginal high risk HPV DNA test positive (Acute 03/31/08) Tubular adenoma (Acute) Smoker (Acute 07/28/17) Ovarian cyst (Acute) Depression (Acute 07/28/17) Chronic obstructive pulmonary disease, unspecified (Acute 07/28/17) CVA (cerebral vascular accident) (Acute 1989) Allergic dermatitis (Acute 07/28/17) Surgical History Colonoscopy planned (Acute ~12/27/17) S/P colonoscopy (Acute ~2003) section Ligation of fallopian tube Family History Mother Diabetes Stroke Father Diabetes Stroke Grandmother Stroke Sister Diabetes Neoplasm Sister No problems noted. Sister Neoplasm Sister No problems noted. Son Depression Daughter No problems noted. Daughter Substance abuse Depression Family History Toxic shock syndrome (TSS) Blood disorder Social History housing: apartment lives independently: Yes number of children: 3 Smoking and Tabacco status: Current every day tobacco type: cigarettes alcohol intake: current alcohol intake frequency: holidays/special occasions only substance use type: marijuana Exam Const General: no acute distress Orientation: alert HENMT Head: normal to inspection Ears: external ears normal General nose exam: external nose normal Mouth: moist mucous membranes Eyes General: appearance normal, both eyes and all related structures Neck Neck: normal visual inspection Resp Effort & Inspection: normal respiratory effort and able to speak in complete sentences Cardio Rate: regular rate Skin General skin exam: no rashes or lesions noted Neuro General: alert and oriented x3 Extrem General: normal to inspection Psych Mental Status: mental status grossly normal Course Vital Signs Temperature 36.5 C 04/14/18 07:48 Pulse 96 H 04/14/18 07:48 Respiratory Rate 18 04/14/18 07:48 Blood Pressure 126/80 04/14/18 07:48 Pulse Oximetry 93 L 04/14/18 07:48 Temperature 36.5 C 04/14/18 07:48 Temperature Source Temporal Artery Scan 04/14/18 07:48 Pulse 96 H 04/14/18 07:48 Respiratory Rate 18 04/14/18 07:48 Respiratory Effort Non-Labored 04/14/18 07:55 Respiratory Depth Normal 04/14/18 07:55 Blood Pressure 126/80 04/14/18 07:48 Blood Pressure Position Sitting 04/14/18 07:48 Pulse Oximetry 93 L 04/14/18 07:48 Oxygen Delivery Method Room Air 04/14/18 07:48 Oxygen Flow Rate 0 04/14/18 07:48 Pain Level 5 04/14/18 07:48
--- NOTE | 2018-04-14 08:10 | ED.GENADUL_ITS ---
Discharge Plan Disposition Patient Disposition: HOME Condition: Stable Discharge Details Chief Complaint: RespSymp Clinical Impression: Sinusitis Primary Care Provider: Elio Sol ED Provider: Everett Velazquez Home Meds and New Rx's Prescriptions: New amoxicillin-pot clavulanate [Augmentin] 875-125 mg tablet 1 tab PO BID Qty: 14 RF: 0 Continued amlodipine 2.5 mg tablet 2.5 mg PO DAILY RF: 0 atorvastatin 20 mg tablet 20 mg PO QPM RF: 0 aspirin 325 MG tablet 1 tab PO DAILY RF: 0 PROVENTIL HFA 18 GM HFA.AER.AD 1 - 2 puff Inhalation Q4H PRN Qty: 2 RF: 5 Discharge Instructions Instructions: Sinusitis (ED) Additional Instructions: Follow up with your primary care provider if not better in a week If you feel you are worsening, becoming more ill and if you have difficulty breathing return to the emergency department Stand Alone Forms: Work Release Medical Decision Making 57 yo female with hx of wpw, copd and continued smoker, who comes in with cough and sinus pressure and body aches for 2 weeks. Denies alcohol or drug use. She has no recent travel or rashes. She is speaking in full sentences and has clear lungs on exam. Does have sinus tendernress on percussion. suspect viral illness but will treat for possible sinusitis with abx and advised f/u with pcp and return if worsening. Given lack of fever, well appearance and clear lungs do not feel imaging or lab work indicated. No murmur and no ivdu and no stigmata of endocarditis Differential Diagnosis sinusitis, uri, influenza, copd, pna HPI General Mode of arrival: ambulatory . Date/Time Provider Initiated Documentation: 04/14/18 07:56 . Limitations to Documentation: no limitations . Information obtained by: patient . History of Present Illness 57 year old F presents to the emergency department with the chief complaint of cough and sinus pressure, described as moderate, with intensity rated at 5. Quality is described as aching, and is localized to the face. Patient started experiencing this week(s) (2) and it has been constant. No relieving factors improve symptom(s), No exacerbating factors reported . Patient notes cough. Patient did receive the following treatments prior to arrival, none Related Data Home Medications Medication Instructions Recorded Confirmed aspirin 1 tab PO DAILY tab 06/15/12 04/14/18 amlodipine 2.5 mg tablet 2.5 mg PO DAILY 02/07/18 04/14/18 atorvastatin 20 mg tablet 20 mg PO QPM 02/07/18 04/14/18 amoxicillin-pot clavulanate 1 tab PO BID #14 tab 04/14/18 [Augmentin] Previous Rx's Medication Instructions Recorded amoxicillin-pot clavulanate 1 tab PO BID #14 tab 04/14/18 [Augmentin] Allergies Allergy/AdvReac Type Severity Reaction Status Date / Time Sulfa (Sulfonamide Allergy Unknown HIVES Verified 04/14/18 07:56 Antibiotics) citalopram AdvReac Intermediate Verified 04/14/18 07:56 iv contrast Allergy Uncoded 04/14/18 07:56 General Stated Complaint: RespSymp NATHANIEL: 3 Review of Systems Review of Systems All systems reviewed & are unremarkable except as noted in HPI and below Constitutional Denies fever(s) and Denies weakness Cardiovascular Denies chest pain and Denies dyspnea Respiratory Denies dyspnea Gastrointestinal Denies abdominal pain, Denies nausea and Denies vomiting Genitourinary Denies dysuria Musculoskeletal Denies joint swelling Integumentary/Breasts Denies rash Neurologic Denies weakness [facility] Medical History WPW (Baati-Ruormnctq-Xacfv syndrome) (Acute 1989) Vaginal high risk HPV DNA test positive (Acute 03/31/08) Tubular adenoma (Acute) Smoker (Acute 07/28/17) Ovarian cyst (Acute) Depression (Acute 07/28/17) Chronic obstructive pulmonary disease, unspecified (Acute 07/28/17) CVA (cerebral vascular accident) (Acute 1989) Allergic dermatitis (Acute 07/28/17) Surgical History Colonoscopy planned (Acute ~12/27/17) S/P colonoscopy (Acute ~2003) section Ligation of fallopian tube Family History Mother Diabetes Stroke Father Diabetes Stroke Grandmother Stroke Sister Diabetes Neoplasm Sister No problems noted. Sister Neoplasm Sister No problems noted. Son Depression Daughter No problems noted. Daughter Substance abuse Depression Family History Toxic shock syndrome (TSS) Blood disorder Social History housing: apartment lives independently: Yes number of children: 3 Smoking and Tabacco status: Current every day tobacco type: cigarettes alcohol intake: current alcohol intake frequency: holidays/special occasions only substance use type: marijuana Exam Const General: no acute distress Orientation: alert HENMT Head: normal to inspection Ears: external ears normal General nose exam: external nose normal Mouth: moist mucous membranes Eyes General: appearance normal, both eyes and all related structures Neck Neck: normal visual inspection Resp Effort & Inspection: normal respiratory effort and able to speak in complete sentences Cardio Rate: regular rate Skin General skin exam: no rashes or lesions noted Neuro General: alert and oriented x3 Extrem General: normal to inspection Psych Mental Status: mental status grossly normal Course Vital Signs Temperature 36.5 C 04/14/18 07:48 Pulse 96 H 04/14/18 07:48 Respiratory Rate 18 04/14/18 07:48 Blood Pressure 126/80 04/14/18 07:48 Pulse Oximetry 93 L 04/14/18 07:48 Temperature 36.5 C 04/14/18 07:48 Temperature Source Temporal Artery Scan 04/14/18 07:48 Pulse 96 H 04/14/18 07:48 Respiratory Rate 18 04/14/18 07:48 Respiratory Effort Non-Labored 04/14/18 07:55 Respiratory Depth Normal 04/14/18 07:55 Blood Pressure 126/80 04/14/18 07:48 Blood Pressure Position Sitting 04/14/18 07:48 Pulse Oximetry 93 L 04/14/18 07:48 Oxygen Delivery Method Room Air 04/14/18 07:48 Oxygen Flow Rate 0 04/14/18 07:48 Pain Level 5 04/14/18 07:48
== END 2018-04-14 08:17 | disposition home or self-care (01) ==
PROVIDERS: Emergency Provider Emergency Medicine; PCP Family Medicine
DX: J01.90 Acute sinusitis, unspecified (principal); J44.9 Chronic obstructive pulmonary disease, unspecified; F17.210 Nicotine dependence, cigarettes, uncomplicated
CPT/HCPCS: 99282

== ENCOUNTER 2018-09-27 10:49 | Outpatient (CLI) | payer BC, SELFPAY ==
--- NOTE | 2018-09-27 10:44 | DI.RAD_ITS ---
SYMPTOMS/DIAGNOSIS: DYSPNEA PROGRESSIVE OVER LAST 6 MONTHS, R06.00, COUGH, R05 PA AND LATERAL CHEST: Comparison 02/01/18. There is again seen a soft tissue mass in the right parahilar region. It appears to have shown some increase in size currently measuring 3.3 cm compared with 2 cm on the prior examination. There is a question of a soft tissue density in the left parahilar region laterally measuring 1 cm. No focal infiltrates, effusions or pneumothoraces are identified. The heart size and pulmonary vasculature are within normal limits. On the lateral view there is an opacity overlying the ninth rib. There are degenerative changes seen in the spine. Underlying COPD is present. IMPRESSION: 1. Pulmonary masses seen. The largest is seen in the right parahilar region. CT scan of the chest is again recommended for further evaluation. 2. COPD.
[2018-09-27 11:53] LABS: Bilirubin Negative (Negative); Blood Negative (Negative); Clarity Clear (Clear); Glucose Negative (Negative); Ketones Negative (Negative); Leukocyte Esterase Negative (Negative); Nitrite Negative (Negative); Urobilinogen 0.2 EU/dL (Up TO 0.2)
[2018-09-27 12:14] LABS: Abs Immature Grans 0.01 k/cumm (0.0-0.09); Absolute Basophil Count 0.03 k/cumm (0.0-0.2); Absolute Eosinophil Count 0.17 k/cumm (0.0-0.7); Absolute Lymphocyte Count 2.05 k/cumm (1.2-3.4); Absolute Neutrophil Count 4.39 k/cumm (1.2-6.7); Basophils % 0.4; Eosinophils % 2.3; HCT 42.7 % (36.0-46.0); HGB 14.2 g/dL (12.0-15.5); Immature Grans % 0.1; Lymphocytes % 27.9; Mean Corp. HGB Concentration 33.3 g/dL (32.0-36.0); Mean Corpuscular Hemoglobin 31.5 pg (27.0-33.0); Mean Corpuscular Volume 94.7 fL (80-95); Mean Platelet Volume 11.1 fL (8.0-11.0); Monocytes % 9.5; Neutrophils % 59.8; Platelet Count 236 x1000/uL (130-400); RBC 4.51 m/cumm (4.00-5.20); RBC Distribution Width 14.4 % (11.7-14.6); White Blood Cell Count 7.35 k/cumm (4.4-10.8)
[2018-09-27 12:24] LABS: ALT 30 U/L (12-78); AST 18 U/L (15-37); Alkaline Phosphatase 142 U/L (46-116); Anion Gap 9.4 mmol/L (3-11); BUN 21 mg/dL (7-18); Bilirubin, Total 0.4 mg/dL (0.2-1.0); CO2 28.6 mmol/L (21.0-32.0); Calcium 9.3 mg/dL (8.5-10.1); Chloride 103 mmol/L (98-107); Estimated GFR 57.35 (mL/min/1.73m2); Glucose 90 mg/dL (70-100); Potassium 4.2 mmol/L (3.5-5.1); Sodium 141 mmol/L (136-145); Total Protein 7.4 g/dL (6.4-8.2)
== END 2018-09-27 11:09 ==
PROVIDERS: PCP Family Medicine; Visit Provider Family Medicine
DX: R06.00 Dyspnea, unspecified (principal); R05 Cough; J44.9 Chronic obstructive pulmonary disease, unspecified; R91.8 Other nonspecific abnormal finding of lung field
CPT/HCPCS: 36415; 80053; 71046; 81003; 85025

== ENCOUNTER 2018-09-29 00:43 | Outpatient (CLI) | payer BC, SELFPAY ==
--- NOTE | 2018-09-29 13:18 | DI.CT_ITS ---
SYMPTOMS/DIAGNOSIS: LUNG MASSES ON CXR, H/O COPD, R91.[address]: The study was carried out according to the usual protocol with an intravenous administration of 70 cc's of Omnipaque 350. Emphysematous changes are noted throughout the lungs. In the perihilar region of the right lung there is a spiculated mass measuring up to 3.6 x 2.2 cm. There is right hilar and mediastinal adenopathy. No other right pulmonary mass is identified. In the left lung there is a posteromedial left lower lobe mass which appears cavitated and measures up to 3.3 x 27.6 cm. In addition there are two left upper lobe perihilar masses, one measuring 9.3 mm. The second measuring 8.6 mm. There is evidence of left hilar and note again made of mediastinal adenopathy with enlarged nodes identified in the aortopulmonary window. There is no evidence of a pleural effusion. The heart is not enlarged. There is no evidence of a pericardial effusion. There are atherosclerotic changes involving the aorta without evidence of an aneurysm. There are no bony findings to suggest metastatic disease. In the abdomen the visualized portions of the liver appear unremarkable. The spleen appears intact and the pancreas appears intact. A left renal cyst is demonstrated. There is no abnormality involving the adrenals. SUMMARY: Bilateral pulmonary masses in a patient with COPD. There is evidence of hilar and mediastinal adenopathy. The findings consistent with a pulmonary carcinoma.
[2018-09-29] MEDS: Omnipaque 350 MG/ML 100 ML BTL IJ (13:53)
== END 2018-09-29 01:03 ==
PROVIDERS: PCP Family Medicine; Visit Provider Family Medicine
DX: R91.8 Other nonspecific abnormal finding of lung field (principal); J44.9 Chronic obstructive pulmonary disease, unspecified; R59.0 Localized enlarged lymph nodes; D38.1 Neoplasm of uncertain behavior of trachea, bronchus and lung
CPT/HCPCS: 71260; J3490

== ENCOUNTER 2018-11-14 07:50 | Outpatient (CLI) | payer BC, SELFPAY ==
[2018-11-14 08:13] LABS: Abs Immature Grans 0.01 k/cumm (0.0-0.09); Absolute Basophil Count 0.02 k/cumm (0.0-0.2); Absolute Eosinophil Count 0.14 k/cumm (0.0-0.7); Absolute Lymphocyte Count 1.54 k/cumm (1.2-3.4); Absolute Monocyte Count 0.66 k/cumm (0.11-0.7); Absolute Neutrophil Count 4.84 k/cumm (1.2-6.7); Basophils % 0.3; Eosinophils % 1.9; HCT 42.7 % (36.0-46.0); HGB 14.4 g/dL (12.0-15.5); Immature Grans % 0.1; Lymphocytes % 21.4; Mean Corp. HGB Concentration 33.7 g/dL (32.0-36.0); Mean Corpuscular Hemoglobin 32.2 pg (27.0-33.0); Mean Corpuscular Volume 95.5 fL (80-95); Mean Platelet Volume 10.3 fL (8.0-11.0); Monocytes % 9.2; Neutrophils % 67.1; Platelet Count 249 x1000/uL (130-400); RBC 4.47 m/cumm (4.00-5.20); RBC Distribution Width 14.4 % (11.7-14.6); White Blood Cell Count 7.21 k/cumm (4.4-10.8)
[2018-11-14 08:42] LABS: ALT 35 U/L (14-59); AST 26 U/L (15-37); Albumin 3.9 g/dL (3.4-5.0); Alkaline Phosphatase 156 U/L (46-116); Anion Gap 10.2 mmol/L (3-11); BUN 22 mg/dL (7-18); Bilirubin, Total 0.5 mg/dL (0.2-1.0); CO2 24.8 mmol/L (21.0-32.0); CREATININE 0.98 mg/dL (0.55-1.02); Chloride 106 mmol/L (98-107); Estimated GFR 58.71 (mL/min/1.73m2); FREE T4 0.77 ng/dL (0.76-1.46); Glucose 120 mg/dL (70-100); Sodium 141 mmol/L (136-145); TSH 3.93 uIU/mL (0.36-3.74); Total Protein 7.7 g/dL (6.4-8.2)
== END 2018-11-14 08:10 ==
PROVIDERS: PCP Family Medicine; Visit Provider Student in an Organized Health Care Education/Training Program
DX: C34.90 Malignant neoplasm of unspecified part of unspecified bronchus or lung (principal)
CPT/HCPCS: 36415; 80053; 84439; 84443; 85025

== ENCOUNTER 2018-12-05 02:41 | Outpatient (CLI) | payer BC, SELFPAY ==
[2018-12-05 09:41] LABS: Abs Immature Grans 0.05 k/cumm (0.0-0.09); Absolute Basophil Count 0.03 k/cumm (0.0-0.2); Absolute Eosinophil Count 0.11 k/cumm (0.0-0.7); Absolute Lymphocyte Count 1.22 k/cumm (1.2-3.4); Absolute Monocyte Count 0.72 k/cumm (0.11-0.7); Absolute Neutrophil Count 2.09 k/cumm (1.2-6.7); Basophils % 0.7; Eosinophils % 2.6; HCT 38.8 % (36.0-46.0); HGB 13.1 g/dL (12.0-15.5); Immature Grans % 1.2; Lymphocytes % 28.9; Mean Corp. HGB Concentration 33.8 g/dL (32.0-36.0); Mean Corpuscular Hemoglobin 32.4 pg (27.0-33.0); Monocytes % 17.1; Neutrophils % 49.5; Platelet Count 485 x1000/uL (130-400); RBC 4.04 m/cumm (4.00-5.20); RBC Distribution Width 14.7 % (11.7-14.6); White Blood Cell Count 4.22 k/cumm (4.4-10.8)
[2018-12-05 09:51] LABS: ALT 54 U/L (14-59); AST 39 U/L (15-37); Albumin 3.8 g/dL (3.4-5.0); Alkaline Phosphatase 152 U/L (46-116); Anion Gap 11.6 mmol/L (3-11); BUN 16 mg/dL (7-18); Bilirubin, Total 0.2 mg/dL (0.2-1.0); CO2 25.4 mmol/L (21.0-32.0); CREATININE 1.05 mg/dL (0.55-1.02); Calcium 9.6 mg/dL (8.5-10.1); Chloride 104 mmol/L (98-107); Estimated GFR 54.21 (mL/min/1.73m2); FREE T4 0.75 ng/dL (0.76-1.46); Glucose 120 mg/dL (70-100); Magnesium 1.9 mg/dL (1.8-2.4); Potassium 3.9 mmol/L (3.5-5.1); Sodium 141 mmol/L (136-145); TSH 4.98 uIU/mL (0.36-3.74); Total Protein 7.7 g/dL (6.4-8.2)
== END 2018-12-05 03:01 ==
PROVIDERS: PCP Family Medicine; Visit Provider Internal Medicine Medical Oncology
DX: C34.90 Malignant neoplasm of unspecified part of unspecified bronchus or lung (principal)
CPT/HCPCS: 36415; 80053; 83735; 84439; 84443; 85025

== ENCOUNTER 2018-12-19 02:09 | Outpatient (CLI) | payer BC, SELFPAY ==
[2018-12-19 10:53] LABS: Abs Immature Grans 0.03 k/cumm (0.0-0.09); Absolute Basophil Count 0.03 k/cumm (0.0-0.2); Absolute Eosinophil Count 0.12 k/cumm (0.0-0.7); Absolute Lymphocyte Count 1.64 k/cumm (1.2-3.4); Absolute Monocyte Count 1.15 k/cumm (0.11-0.7); Absolute Neutrophil Count 4.53 k/cumm (1.2-6.7); Basophils % 0.4; Eosinophils % 1.6; HCT 40.1 % (36.0-46.0); HGB 13.3 g/dL (12.0-15.5); Immature Grans % 0.4; Lymphocytes % 21.9; Mean Corp. HGB Concentration 33.2 g/dL (32.0-36.0); Mean Corpuscular Hemoglobin 32.8 pg (27.0-33.0); Mean Corpuscular Volume 98.8 fL (80-95); Mean Platelet Volume 10.3 fL (8.0-11.0); Monocytes % 15.3; Neutrophils % 60.4; Platelet Count 204 x1000/uL (130-400); RBC 4.06 m/cumm (4.00-5.20); RBC Distribution Width 16.7 % (11.7-14.6)
[2018-12-19 12:17] LABS: ALT 36 U/L (14-59); AST 23 U/L (15-37); Albumin 3.8 g/dL (3.4-5.0); Alkaline Phosphatase 139 U/L (46-116); Anion Gap 9.4 mmol/L (3-11); BUN 21 mg/dL (7-18); Bilirubin, Total 0.5 mg/dL (0.2-1.0); CO2 26.6 mmol/L (21.0-32.0); CREATININE 0.99 mg/dL (0.55-1.02); Calcium 9.2 mg/dL (8.5-10.1); Chloride 102 mmol/L (98-107); Estimated GFR 58.02 (mL/min/1.73m2); FREE T4 0.72 ng/dL (0.76-1.46); Glucose 92 mg/dL (70-100); Magnesium 1.9 mg/dL (1.8-2.4); Potassium 4.1 mmol/L (3.5-5.1); Sodium 138 mmol/L (136-145); TSH 3.31 uIU/mL (0.36-3.74); Total Protein 7.2 g/dL (6.4-8.2)
== END 2018-12-19 02:29 ==
PROVIDERS: PCP Family Medicine; Visit Provider Internal Medicine Medical Oncology
DX: C34.90 Malignant neoplasm of unspecified part of unspecified bronchus or lung (principal)
CPT/HCPCS: 36415; 80053; 83735; 84439; 84443; 85025

== ENCOUNTER 2018-12-26 02:11 | Outpatient (CLI) | payer BC, SELFPAY ==
[2018-12-26 08:13] LABS: Abs Immature Grans 0.15 k/cumm (0.0-0.09); Absolute Basophil Count 0.01 k/cumm (0.0-0.2); Absolute Eosinophil Count 0.13 k/cumm (0.0-0.7); Absolute Lymphocyte Count 2.59 k/cumm (1.2-3.4); Absolute Monocyte Count 0.99 k/cumm (0.11-0.7); Absolute Neutrophil Count 6.78 k/cumm (1.2-6.7); Basophils % 0.1; Eosinophils % 1.2; HCT 40.3 % (36.0-46.0); HGB 13.3 g/dL (12.0-15.5); Immature Grans % 1.4; Lymphocytes % 24.3; Mean Corpuscular Hemoglobin 32.6 pg (27.0-33.0); Mean Corpuscular Volume 98.8 fL (80-95); Mean Platelet Volume 10.3 fL (8.0-11.0); Monocytes % 9.3; Neutrophils % 63.7; Platelet Count 266 x1000/uL (130-400); RBC 4.08 m/cumm (4.00-5.20); RBC Distribution Width 16.8 % (11.7-14.6); White Blood Cell Count 10.65 k/cumm (4.4-10.8)
[2018-12-26 09:31] LABS: ALT 43 U/L (14-59); AST 16 U/L (15-37); Albumin 3.5 g/dL (3.4-5.0); Alkaline Phosphatase 101 U/L (46-116); Anion Gap 9.2 mmol/L (3-11); BUN 30 mg/dL (7-18); Bilirubin, Total 0.3 mg/dL (0.2-1.0); CO2 24.8 mmol/L (21.0-32.0); CREATININE 0.94 mg/dL (0.55-1.02); Calcium 9.1 mg/dL (8.5-10.1); Chloride 105 mmol/L (98-107); FREE T4 0.63 ng/dL (0.76-1.46); Glucose 95 mg/dL (70-100); Magnesium 2.1 mg/dL (1.8-2.4); Potassium 3.7 mmol/L (3.5-5.1); Sodium 139 mmol/L (136-145); TSH 7.09 uIU/mL (0.36-3.74); Total Protein 6.8 g/dL (6.4-8.2)
== END 2018-12-26 02:31 ==
PROVIDERS: PCP Family Medicine; Visit Provider Internal Medicine Medical Oncology
DX: C34.90 Malignant neoplasm of unspecified part of unspecified bronchus or lung (principal)
CPT/HCPCS: 36415; 80053; 83735; 84439; 84443; 85025

== ENCOUNTER 2019-10-11 04:34 | Outpatient (CLI) | payer MEDICAID, SELFPAY ==
--- NOTE | 2019-10-11 11:00 | RT.EKG_ITS ---
APPROVED REPORT Exam: Resting ECG Patient Location: O HR:79 bpm ECG Measurements Heart Rate 79 AXIS MS 195 P 61 QRSd 83 QRS 44 QT 361 T 56 QTc 413 Conclusion Sinus rhythm...normal P axis, V-rate 60- 99 Anteroseptal infarct, age indeterminate...Q >35mS, T neg, V1-V2
== END 2019-10-11 04:54 ==
PROVIDERS: PCP Family Medicine; Visit Provider Family Medicine
DX: I45.6 Pre-excitation syndrome (principal)
CPT/HCPCS: 93005; 93010

== ENCOUNTER 2019-12-20 14:08 | Outpatient (REF) | payer MEDICAID, SELFPAY ==
[2019-12-20 15:29] LABS: Bilirubin Negative (Negative); Blood Negative (Negative); Clarity Clear (Clear); Glucose Negative (Negative); Ketones Negative (Negative); Leukocyte Esterase Negative (Negative); Nitrite Negative (Negative); Specific Gravity 1.025 (1.005-1.025); Urobilinogen 0.2 EU/dL (Up TO 0.2)
== END 2019-12-20 14:28 ==
LOC: LBN 14:08
PROVIDERS: PCP Family Medicine; Visit Provider Nurse Practitioner Family
DX: C34.91 Malignant neoplasm of unspecified part of right bronchus or lung (principal)
CPT/HCPCS: 81003

== ENCOUNTER 2020-03-19 10:44 | Outpatient (CLI) | payer MEDICAID, SELFPAY ==
--- NOTE | 2020-03-19 | DI.RAD_ITS ---
EXAM: XR CHEST 2V PA LATERAL CLINICAL HISTORY: DYSPNEA, NON SMALL CELL LUNG CA, ? INFECTION TECHNIQUE: 2D digital imaging was performed. COMPARISON: CR XR PORTABLE CHEST AP from 02/01/2018 CR XR CHEST 2V PA LATERAL from 09/27/2018 FINDINGS: MEDIASTINUM: Normal. HEART: Normal. PULMONARY VASCULATURE: Normal. LUNGS: The lungs are hyperinflated consistent with underlying COPD. The opacity in the right perihil ar region is less prominent compared to the prior examination. There has developed a peripheral infi ltrate in the right upper lobe. PLEURAL SPACE: No pleural effusion or pneumothorax. BONE:Degenerative changes are seen in the spine. OTHER FINDINGS:Normal. IMPRESSION: Peripheral right upper lobe infiltrate suspicious for pneumonia. DATA REPOSITORY: RADIATION DOSE DELIVERED:
[2020-03-19 13:04] LABS: Abs Immature Grans 0.26 10^3/uL (0.0-0.06); Absolute Basophil Count 0.04 10^3/uL (0.0-0.2); Absolute Eosinophil Count 0.08 10^3/uL (0.0-0.7); Absolute Lymphocyte Count 1.38 10^3/uL (1.2-3.4); Absolute Monocyte Count 1.03 10^3/uL (0.1-0.8); Basophils % 0.7; Eosinophils % 1.3; HCT 32.6 % (36.0-46.0); HGB 10.8 g/dL (11.2-15.7); Immature Grans % 4.3; Lymphocytes % 22.7; MCH 32.4 pg (27.0-33.0); MCHC 33.1 % (32.0-36.0); MCV 97.9 fL (80-95); MPV 10.8 fL (8.0-11.0); Monocytes % 16.9; Neutrophils % 54.1; Nucleated RBC 0 %; Platelet Count 236 10^3/uL (130-400); RBC 3.33 10^6/uL (3.93-5.22); RDW 16.6 % (11.7-14.6); RDW-SD 60.6 fL; WBC 6.09 10^3/uL (4.4-10.8)
[2020-03-19 13:17] LABS: ALT 32 U/L (14-59); AST 28 U/L (15-37); Alkaline Phosphatase 157 U/L (46-116); Anion Gap 9.4 mmol/L (3-11); BUN 13 mg/dL (7-18); Bilirubin, Total 0.3 mg/dL (0.2-1.0); CO2 23.6 mmol/L (21.0-32.0); CREATININE 1.61 mg/dL (0.55-1.02); Calcium 9.5 mg/dL (8.5-10.1); Chloride 101 mmol/L (98-107); Estimated GFR 32.99 (mL/min/1.73m2); Glucose 93 mg/dL (74-106); Potassium 3.2 mmol/L (3.5-5.1); Sodium 134 mmol/L (136-145); Total Protein 7.7 g/dL (6.4-8.2)
[2020-03-19 14:35] LABS: TSH (W/Ref FT4) 3.05 uIU/mL (0.36-3.74)
== END 2020-03-19 11:04 ==
PROVIDERS: PCP Family Medicine; Visit Provider Internal Medicine Medical Oncology
DX: C34.91 Malignant neoplasm of unspecified part of right bronchus or lung; R91.8 Other nonspecific abnormal finding of lung field; R06.00 Dyspnea, unspecified
CPT/HCPCS: 36415; 80053; 71046; 84443; 85025